=== PATIENT | female | born 1980 | race Caucasian/White ===

== ENCOUNTER 2025-01-12 18:29 | Emergency (ER) | payer OTHER, SELFPAY ==
[2025-01-12 18:36] VITALS: BP 136/84
[2025-01-12 18:51] LABS: % Basophils 0.7 % (0-2); % Immature Granulocytes 0.2 % (0-0.5); % Lymphocytes 31.2 % (20.5-51.1); % Monocytes 8.7 % (1.7-9.3); % Neutrophils 58.2 % (42.2-75.2); Absolute Eosinophils 0.1 10^3/uL (0-0.7); Absolute Lymphocytes 1.8 10^3/uL (1.2-3.4); Absolute Monocytes 0.5 10^3/uL (0.1-0.6); Absolute Neutrophils 3.4 10^3/uL (1.4-6.5); Hematocrit 42.3 % (37.0-47.0); Hemoglobin 14.5 g/dL (12.0-16.0); Mean Corp Hgb Conc. 34.3 g/dL (33.0-37.0); Mean Corpuscular Hgb 30.7 pg (27.0-31.0); Mean Corpuscular Volume 89.4 fL (81.0-99.0); Mean Platelet Volume 10.3 fL (7.4-10.4); Nucleated Red Blood Cells % 0 %; Platelet Count 270 10^3/uL (130-400); Red Blood Cell Count 4.73 10^6/uL (4.20-5.40); Red Cell Dist. Width 12.4 % (11.5-14.5); White Blood Cell Count 5.8 10^3/uL (4.8-10.8)
[2025-01-12 19:03] LABS: HCG, Serum Qualitative Screen Negative
[2025-01-12 19:07] LABS: ALT (SGPT) 59 U/L (0-35); AST (SGOT) 112 U/L (14-36); Albumin 4.7 g/dl (3.5-5.0); Alkaline Phosphatase 51 U/L (38-126); Blood Urea Nitrogen 16 mg/dl (7-17); Calcium 10.3 mg/dl (8.4-10.2); Carbon Dioxide 25 mmol/L (22-30); Chloride 106 mmol/L (98-107); Glucose 76 mg/dl (70-99); Sodium 140 mmol/L (135-145); Total Bilirubin 0.6 mg/dl (0.2-1.3); Total Protein 7.2 g/dl (6.3-8.2); eGFR > 60.00
[2025-01-12 19:08] LABS: Lipase 130 U/L (23-300)
--- NOTE | 2025-01-12 21:56 | ED.GENMED ---
History of Present Illness
<SYD Greenberg - Last Filed: 01/13/25 17:55>
General
Chief Complaint: Abdominal Pain
Source: patient
Exam Limitations: none
Time Seen by Provider: 01/12/25 21:24
Nursing documentation reviewed up to this point in time: agreed with except (Patient complains of right upper quadrant pain and not left upper quad pain as documented by triage)
History of Present Illness
History of Present Illness:
44-year-old female presents to the ER for evaluation of right upper quadrant pain. Patient started with right upper quadrant pain last night and has had pain throughout the day today. She did have pizza which did seem to worsen the pain which is
what prompted her to come to the ER. She denies any nausea. She does feel that it wraps around her back. She denies any fever or chills.
She does report that she had this pain once in the past in September however she was in [place] at the time and it resolved on its own.
Patient denies any shortness of breath.
Review of Systems
<SYD Greenberg - Last Filed: 01/13/25 17:55>
Review of Systems
Allergies reviewed?: Yes
All Other Systems: ROS reviewed and negative except as documented in HPI and ROS
Constitutional: Reports no symptoms; Denies fever, fatigue or chills
Respiratory: Reports no symptoms
Cardiac: Reports no symptoms
ABD/GI: Reports abdominal pain; Denies nausea, vomiting or diarrhea
: Reports no symptoms
Musculoskeletal: Reports back pain
Skin: Reports no symptoms
Neurological: Reports no symptoms
Hematologic/Lymphatic: Reports no symptoms
Psychiatric: Reports no symptoms
Phy Exam
<SYD Greenberg - Last Filed: 01/13/25 17:55>
General Physical Exam
General Presentation: no apparent distress
General age: appears stated age
General Skin: warm and dry
General Habitus: normal
General Mental: alert
General Hydration: appears well hydrated
Gastrointestinal Exam
Gastrointestinal Exam: soft and tender (RUQ tenderness )
Neurological Exam
Neurological Exam: alert and oriented x3
Musculoskeletal Exam
Musculoskeletal Exam: full ROM
Skin Exam
Skin Exam: normal color and warm/dry
Psychiatric Exam
Psychiatric Exam: normal mood/affect
Course
<SYD Greenberg - Last Filed: 01/13/25 17:55>
Orders/Labs/Results
Orders:
Orders
01/12/25 18:39
Test Result ONCE
01/12/25 18:44
Complete Blood Count/With Diff Urgent
Comprehensive Metabolic Panel Urgent
HCG, Serum Qualitative Screen Urgent
Lipase Urgent
01/12/25 22:01
US Abdomen Complete/Upper Urgent
Comment:
Reason For Exam: ruq pain
01/13/25 00:26
DDimer [D-Dimer] Urgent
Abnormal Lab Results
01/12/25
18:44
Calcium 10.3 H mg/dl
(8.4-10.2)
AST 112 H U/L
(14-36)
ALT 59 H U/L
(0-35)
01/12/25 18:44
01/12/25 18:44
Vital Signs
Initial and Last Documented VS:
Initial Vital Signs
Temp Pulse Resp BP Pulse Ox
98.6 F 91 18 136/84 99
01/12/25 18:36 01/12/25 18:36 01/12/25 18:36 01/12/25 18:36 01/12/25 18:36
Last Documented Vital Signs
Temp Pulse Resp BP Pulse Ox
98.6 F 91 18 136/84 99
01/12/25 18:36 01/12/25 18:36 01/12/25 18:36 01/12/25 18:36 01/12/25 18:36
<Ayanna Li DO - Last Filed: 01/13/25 02:00>
Orders/Labs/Results
Orders:
Orders
01/12/25 18:39
Test Result ONCE
01/12/25 18:44
Complete Blood Count/With Diff Urgent
Comprehensive Metabolic Panel Urgent
HCG, Serum Qualitative Screen Urgent
Lipase Urgent
01/12/25 22:01
US Abdomen Complete/Upper Urgent
Comment:
Reason For Exam: ruq pain
01/13/25 00:26
DDimer [D-Dimer] Urgent
Abnormal Lab Results
01/12/25
18:44
Calcium 10.3 H mg/dl
(8.4-10.2)
AST 112 H U/L
(14-36)
ALT 59 H U/L
(0-35)
01/12/25 18:44
01/12/25 18:44
Vital Signs
Initial and Last Documented VS:
Initial Vital Signs
Temp Pulse Resp BP Pulse Ox
98.6 F 91 18 136/84 99
01/12/25 18:36 01/12/25 18:36 01/12/25 18:36 01/12/25 18:36 01/12/25 18:36
Last Documented Vital Signs
Temp Pulse Resp BP Pulse Ox
98.6 F 91 18 136/84 99
01/12/25 18:36 01/12/25 18:36 01/12/25 18:36 01/12/25 18:36 01/12/25 18:36
<SYD Greenberg - Last Filed: 01/13/25 17:55>
MDM/Problems Addressed
Differential Diagnosis Includes:
Not limited to biliary colic
MDM/Problems Addressed:
Patient is a 44 female who presented with right upper quadrant pain. She had previous episode several months ago. Episodes seem to worsen after eating. She denies any actual shortness of breath or rib pain. No injury. She is tender to the right
upper quadrant. She denies any associated fever or chills. She is nontoxic she is afebrile with a normal white count. AST and ALT minimally elevated. US negative.
ddimer done however unlikely PE. d dimer negative. Patient has remained in no acute distress here in the ER and reports symptoms have improved.
Will DC with outpatient follow-up with family doctor.
<SYD Greenberg - Last Filed: 01/13/25 17:55>
*Critical Care Note
Total Time (30-74mins, 75-104mins- exclusive of procedures): Not Applicable
ED Attending Note
<SYD Greenberg - Last Filed: 01/13/25 17:55>
-
Portions of this chart may have been created with voice recognition software.� Occasional wrong word or��sound alike� substitutions may have occurred due to the inherent limitations of voice recognition software.
<Ayanna Li DO - Last Filed: 01/13/25 02:00>
ED Attending Note
Patient seen and examined by attending physician: Yes
I performed the substantive portion of visit, reviewed & personally made and approve the management plan that is documented in note by myself or JOHAN.: Yes
I performed a history and physical exam of patient and discussed management with resident, I reviewed resident's note and agree with documented findings and plan of care.: Yes
ED Attending Note:
44-year-old female presenting to the emergency department for upper right abdominal pain since last evening. Notes similar episode in September when she was in [place], unknown etiology. Denies associated vomiting. Denies any abnormal meal prior
to onset. Denies chest pain or difficulty breathing. Pain has been intermittent. Vital signs are normal.
Patient seen and evaluated by JOHAN, concern for gallbladder pathology. Patient sent for laboratory analysis, right upper quadrant ultrasound imaging as well as a D-dimer given location, pain with deep inspiration. Upon assessment, no present
tenderness to the abdomen, soft and nondistended. Workup reviewed with unremarkable laboratory analysis, negative D-dimer, negative ultrasound of the right upper quadrant. Ultimately feel stable for discharge without need for additional advanced
imaging, however advised if symptoms are persisting or having repeat attacks of pain, to follow-up with a GI doctor. Return precautions discussed.
Discharge Plan
Departure
Patient Disposition: Home (Routine Discharge)
Date of Disposition: 01/13/25
Time of Disposition: 01:48
Patient with high blood pressure during this ER visit?: Yes
Condition: Fair
Covid-19: Not Applicable
Discharge Problem:
Abdominal pain
Instructions: Abdominal Pain, BLOOD PRESSURE
Referrals:
Bib English DO [Family Provider] -
Activity Restrictions/Additional Instructions:
Follow-up with your family doctor in the next 2 days for reevaluation of your symptoms
Interventions
Interventions:
*Risk Screen - Suicide Last Done: 01/12/25 18:38
*General Assessment Last Done: 01/12/25 18:38
*Neglect/Abuse Screening Last Done: 01/12/25 18:38
*ED COVID-19 Vaccine History Last Done: 01/12/25 18:38
*Nursing Disposition Last Done: 01/13/25 01:31
XK-[id number] Assessment Last Done: 01/12/25 21:00
Discharge Date and Time
Discharge Date/Time: 01/13/25 01:31
Print Language: PALESTINIAN
[2025-01-13 01:24] LABS: D-Dimer < 0.27 ug/mlFEU (0.00-0.50)
== END 2025-01-13 01:31 | disposition home or self-care (01) ==
LOC: EMR 18:29
PROVIDERS: Emergency Medicine; Nurse Practitioner; EMERGENCY PHYSICIAN Student in an Organized Health Care Education/Training Program; FAMILY PHYSICIAN Family Medicine
DX: R10.11 Right upper quadrant pain (principal)
CPT/HCPCS: 99284; 76700; 80053; 83690; 84703; 85025; 85379